=== PATIENT | male | born 1990 | race Two or more races ===

== ENCOUNTER 2024-01-14 12:22 | Emergency (ER) | payer MEDICAID, SELFPAY ==
[2024-01-14 12:24] VITALS: BMI 27.4
[2024-01-14 12:27] VITALS: BP 138/91; PULSE 88; RESP 19; TEMP 36.8; O2SAT 99
--- NOTE | 2024-01-14 12:41 | XR_ITS ---
Examination: Abdomen sonogram, Limited Date and time of exam: January 14, 2024 1248 hrs. Indications: Epigastric pain spitting up blood one week Technique: Real-time de scale transabdominal sonographic images of the upper abdomen obtained. Findings: Normal gallbladder Normal common bile duct 0.3 cm Pancreatic head 3.1 cm Liver 15.7 cm fatty infiltration smooth contour no focal liver lesions Normal hepatopedal portal venous flow Patent IVC Impression: Normal gallbladder Normal common bile duct Fatty liver
--- NOTE | 2024-01-14 12:43 | PD.EDABDPN ---
ED Abdominal Pain RME/HPI General Chief Complaint: Abdominal Pain Stated complaint: SPITTING UP BLOOD X1 WK, UPPER ABD PAIN Time seen by provider: 01/14/24 12:32 Arrival date/time: 01/14/24 12:22 RME / HPI RME / HPI narrative: 33-year-old male patient with no significant medical history, used to be an alcoholic, but stopped drinking 3 months ago, came in for evaluation regarding spitting up blood. This been ongoing for 1 week severity mild. Patient denies any vomiting denies any blood in the stool denies any black tarry stool or changes in the color of her stool. Patient also complained of epigastric pain, described as pulsating, severity mild. Denies any other complaints no medications taken prior travel. Related Data Previous Rx's ?Medication ?Instructions ?Recorded pantoprazole 40 mg tablet,delayed 40 mg PO QDAY #30 tabs 01/14/24 release (Protonix) Allergies Allergy/AdvReac Type Severity Reaction Status Date / Time No Known Allergies Allergy Verified 01/14/24 12:26 Review of Systems Review of Systems Narrative Review of Systems: Review of system reviewed and within normal limits except mentioned in HPI ED Exam Narrative Physical exam: VITAL SIGNS: Reviewed. GENERAL APPEARANCE: Alert and interactive, follows commands, no acute distress, HEAD AND FACE: Non-traumatic. ENT: PERRL, pink conjunctivitis, eyelid no trauma, Mucous membrane moist. No dental cavity noted, no bleeding of the gums noted NECK: Supple, nontender, no nuchal rigidity. CHEST: No tenderness, no crepitus, no paradoxical movement, no retractions. LUNGS: Clear, well ventilated, symmetric, no rales, no wheezing, no ronchi, no stridor, good breath sounds bilaterally. HEART: Regular rate, regular rhythm, no murmur, no gallops. ABDOMEN: Soft, positive bowel sounds, nondistended, no guarding, nontender, no rebound, no masses, RECTAL: Deferred. GENITAL: Deferred. NEUROLOGICAL: Gross motor function intact sensory function intact, Appropriate for age. MUSCULOSKELETAL: low back nontender, full range of motion. EXTREMITIES: Nontender, full range of motion. SKIN: Color pink, dry, no rash, no lacerations, no abrasions, no contusions. LYMPHATICS: Deferred. Course Quality Measures none Orders Category Date Time Status US abdomen limited Stat Exams 01/14/24 12:41 Completed CBC Stat Lab 01/14/24 13:14 Completed Comprehensive Metabolic Panel Stat Lab 01/14/24 13:14 Completed Partial Thromboplastin Time Stat Lab 01/14/24 13:14 Completed Prothrombin Time with INR Stat Lab 01/14/24 13:14 Completed Ondansetron Odt [Zofran Odt] Med 01/14/24 12:41 Discontinued 4 mg PO X1 ONE Pantoprazole [Protonix] Med 01/14/24 12:41 Discontinued 40 mg PO X1 ONE Vital Signs Vital signs: Vital Signs Temperature 98.3 F 01/14/24 12:27 Pulse Rate 88 01/14/24 12:27 Respiratory Rate 19 01/14/24 12:27 Blood Pressure 138/91 H 01/14/24 12:27 Pulse Oximetry (%) 99 01/14/24 12:27 Oxygen Delivery Method Room Air 01/14/24 12:27 Abdominal Pain MDM MDM Narrative MDM Narrative:: 33-year-old male patient with no significant medical history, used to be an alcoholic, but stopped drinking 3 months ago, came in for evaluation regarding spitting up blood. This been ongoing for 1 week severity mild. Patient denies any vomiting denies any blood in the stool denies any black tarry stool or changes in the color of her stool. Patient also complained of epigastric pain, described as pulsating, severity mild. Denies any other complaints no medications taken prior travel. Son workup all came back unremarkable, no anemia noted, LFTs are normal. Ultrasound of the gallbladder showed fatty liver, no other abnormality noted. Patient data External records reviewed:: None Clinical information provided by:: none Social determinants that could affect healthcare access:: alcohol use Patient has the following chronic illnesses:: None How is presenting disease/condition affected by chronic disease/condition?: exacerbated by Evaluation data The following diagnostics were reviewed and interpreted by me:: lab results Lab and/or radiology exams considered but not ordered:: None Interpretation Summary: Laboratory workup all came back unremarkable. Ultrasound of the gallbladder came back unremarkable except for fatty liver. LFTs are normal. Medications / Prescriptions Medications or Prescriptions considered but not ordered:: None Medication administrations:: Medication Administration History Discontinued Medications Ondansetron HCl (Ondansetron Odt 4 Mg Tabrap) 4 mg PO X1 ONE; Protocol Stop: 01/14/24 12:42 Last Admin: 01/14/24 13:03 Dose: 4 mg Documented By: JAYCE Pantoprazole Sodium (Pantoprazole 40 Mg Tablet) 40 mg PO X1 ONE Stop: 01/14/24 12:42 Last Admin: 01/14/24 13:03 Dose: 40 mg Documented By: JAYCE Zofran and Protonix Consultations Consultation(s) initiated? (list below): No Diagnosis Differential diagnosis abdominal pain: abdominal pain, pancreatitis and other (Fatty liver, epigastric pain) Most likely diagnosis given after review of the tests above:: Epigastric pain Admission Indicated Admission indicated?: not indicated Admission Request Was there a request for admission?: No Disposition Plan Disposition Plan: Discharge Discharge Attestation Discharge Attestation: The patient was given an opportunity to ask questions and understood the discharge instructions. Discharge instructions specifically effects, indications for sooner follow up or return to the emergency department, and the expected course of current diagnosis. Patient condition: Stable Discharge Plan Plan Patient Disposition: HOME (Self Care) Disposition Comment: stable Prescriptions/Referrals Prescriptions/Med Rec: New pantoprazole [Protonix] 40 mg tablet,delayed release (DR/EC) 40 mg PO QDAY Qty: 30 0RF Problem List Clinical Impression: Acute epigastric pain Patient/Caregiver Discharge Instructions Discharge Activity: activity as tolerated Education Materials: ED Pain, Acute, Uncertain Cause Additional Instructions: Thank you for the opportunity for serving you today. You are stable for discharged . You are advised to: Follow-up with your PCP in 1 to 2 days Return to ED for worsening of symptoms Increase oral fluids Take medication as prescribed Print Language: Swedish Stand Alone Forms: Diana Award Info., Patient Portal Info Letter SABI/JULIUS Supervising Physician SABI/JULIUS Supervising Physician: Dr Morales
[2024-01-14] MEDS: PANTOPRAZOLE 40 MG TABLET PO (13:03)
[2024-01-14] MEDS: ONDANSETRON ODT 4 MG TABRAP PO (13:03)
[2024-01-14 13:25] LABS: Basophils % (Auto) 0 % (0-2.5); Eosinophils % (Auto) 0 % (0-10); Hematocrit 49.2 % (41.0-53.0); Hemoglobin 17.1 g/dL (13.5-16.0); Immature Granulocytes % (Auto) 0 % (0-0); Immature Granulocytes Auto 0.02 Thou/mm3 (0.00-0.00); Lymphocytes # (Auto) 1.9 Thou/mm3 (1.0-4.8); Lymphocytes % (Auto) 28 % (10-50); Mean Corpuscular HGB Conc 34.8 g/dl (31.0-37.0); Mean Corpuscular Hemoglobin 29.7 pg (25.0-35.0); Mean Corpuscular Volume 86 fL (80-100); Monocytes # (Auto) 0.4 Thou/mm3 (0.0-0.8); Monocytes % (Auto) 6 % (0-12); Neutrophils # (Auto) 4.5 Thou/mm3 (1.8-7.7); Neutrophils % (Auto) 65 % (37-80); Nucleated Red Blood Cell % 0 /100 WBC (0); Platelet Count 237 Thou/mm3 (140-440); RDW Standard Deviation 39.8 fL (35.1-43.9); Red Blood Count 5.75 Miln/mm3 (4.50-5.90); White Blood Count 6.9 Thou/mm3 (3.8-10.6)
[2024-01-14 13:37] LABS: Partial Thromboplastin Time 31.1 Seconds (22.0-36.0); Prothrombin Time 10.9 Seconds (9.0-12.2)
[2024-01-14 13:41] LABS: Alanine Aminotransferase 39 U/L (10-49); Albumin, Serum 5.5 gm/dL (3.5-5.0); Albumin/Globulin Ratio 2.3 (1.2-2.2); Alkaline Phosphatase 108 U/L (46-116); Anion Gap 6 (7-16); Aspartate Amino Transferase 28 U/L (0-34); BUN/Creatinine Ratio 13 Ratio (12-20); Bilirubin,Total 0.5 mg/dL (0.3-1.2); Blood Urea Nitrogen 9 mg/dL (9-23); Carbon Dioxide 29.1 mMol/L (20.0-31.0); Chloride 102 mMol/L (98-107); Creatinine (Component) 0.7 mg/dL (0.6-1.3); Estimated Creatinine Clearance 128.5 mL/min (>60); Globulin 2.4 gm/dL (2.3-3.5); Glucose 135 mg/dL (74-106); Osmolality,Calculated 274 (275-295); Potassium 3.8 mMol/L (3.4-5.1); Sodium 137 mMol/L (136-145); Total Protein 7.9 gm/dL (5.7-8.2); eGFR > 60 See Note
== END 2024-01-14 14:07 | disposition home or self-care (01) ==
LOC: SERX 14:12
PROVIDERS: Nurse Practitioner Family; Emergency Provider Emergency Medicine
DX: K76.0 Fatty (change of) liver, not elsewhere classified (principal)
CPT/HCPCS: 36415; 76705; 80053; 85025; 85610; 85730; 99284; Q0162; A9270